=== PATIENT | female | born 1965 | race Caucasian/White ===

== ENCOUNTER 2020-08-04 08:52 | Outpatient (REF) | payer OTHER, SELFPAY ==
--- NOTE | ~2020-08-04 | MM_ITS ---
EXAMINATION: MM SCREENING DIGITAL BREAST TOMOSYNTHESIS, BILATERAL CLINICAL INFORMATION: Screening. Asymptomatic. The lifetime risk of breast cancer based on the Tyrer-Cuzick Model is 7%. COMPARISON: Mammography: 05/07/2019, 05/06/2018, 04/23/2017 TECHNIQUE: Digital breast tomosynthesis is performed in both the craniocaudal and mediolateral oblique views along with computer-aided detection (CAD). Synthesized 2D images are generated from the tomosynthesis. FINDINGS: There are scattered areas of fibroglandular density (ACR BI-RADS breast composition Category b). There are no significant masses, abnormal calcifications, or other abnormalities. Parenchymal pattern is similar to prior exams. The axilla are similar to prior studies. The skin contours are smooth. No significant changes. MM/MM tomosynthesis screening BI IMPRESSION: No mammographic evidence of malignancy. ASSESSMENT: BI-RADS 1: Negative RECOMMENDATION: Routine annual mammography screening. This patient's information was entered into a reminder system with a target due date for their next mammogram.
== END 2020-08-04 08:53 | disposition home or self-care (01) ==
LOC: HO.MAMMO 08:52
PROVIDERS: PCP Family Medicine; Visit Provider Family Medicine
DX: Z12.31 Encounter for screening mammogram for malignant neoplasm of breast (principal)
CPT/HCPCS: 77063; 77067

== ENCOUNTER 2020-12-15 07:20 | Outpatient (REF) | payer OTHER, SELFPAY | END 2020-12-15 07:21 | disposition home or self-care (01) | LOC: HO.LAB 07:20 | PROVIDERS: PCP Family Medicine; Visit Provider Internal Medicine | DX: Z20.822 Contact with and (suspected) exposure to COVID-19 (principal) | CPT/HCPCS: C9803; U0003; U0005 ==

== ENCOUNTER 2021-08-15 10:50 | Outpatient (REF) | payer OTHER, SELFPAY ==
--- NOTE | ~2021-08-15 | XR_ITS ---
EXAMINATION: XR CHEST CLINICAL INFORMATION: Cough. COMPARISON: Chest 11/21/2018 TECHNIQUE: 2 views of the chest were obtained. FINDINGS: The lungs are well-expanded and clear of acute process. The heart size and pulmonary vascularity is normal. There is minimal bilateral apical pleural thickening. There is mild spondylosis ventral dorsal spine. XR/XR chest 2V IMPRESSION: No acute cardiopulmonary pulmonary process seen. No major change from 11/21/2018
[2021-08-15 12:41] LABS: D Dimer High Sensitivity < 150 NG/ML
== END 2021-08-15 10:51 | disposition home or self-care (01) ==
LOC: HO.LAB 10:50
PROVIDERS: Absent Provider Family Medicine; PCP Family Medicine; Visit Provider Emergency Medicine
DX: R05.9 Cough, unspecified (principal)
CPT/HCPCS: 36415; 71046; 85379

== ENCOUNTER 2021-08-17 08:32 | Outpatient (REF) | payer OTHER, SELFPAY ==
--- NOTE | ~2021-08-17 | MM_ITS ---
EXAMINATION: MM SCREENING DIGITAL BREAST TOMOSYNTHESIS, BILATERAL CLINICAL INFORMATION: Screening. Asymptomatic. The lifetime risk of breast cancer based on the Tyrer-Cuzick Model is 7%. COMPARISON: Mammography: 08/04/2020, 05/07/2019, 05/06/2018 TECHNIQUE: Digital breast tomosynthesis is performed in both the craniocaudal and mediolateral oblique views along with computer-aided detection (CAD). Synthesized 2D images are generated from the tomosynthesis. FINDINGS: There are scattered areas of fibroglandular density (ACR BI-RADS breast composition Category b). There are no significant masses, abnormal calcifications, or other abnormalities. Parenchymal pattern is similar to prior studies. The axilla and skin contours are unremarkable. No significant changes. MM/MM tomosynthesis screening BI IMPRESSION: No mammographic evidence of malignancy. ASSESSMENT: BI-RADS 1: Negative RECOMMENDATION: Routine annual mammography screening. This patient's information was entered into a reminder system with a target due date for their next mammogram.
== END 2021-08-17 08:33 | disposition home or self-care (01) ==
LOC: HO.MAMMO 08:32
PROVIDERS: PCP Family Medicine; Visit Provider Family Medicine
DX: Z12.31 Encounter for screening mammogram for malignant neoplasm of breast (principal)
CPT/HCPCS: 77063; 77067

== ENCOUNTER 2021-10-18 08:32 | Outpatient (REF) | payer OTHER, SELFPAY ==
--- NOTE | ~2021-10-18 | XR_ITS ---
EXAMINATION: XR CHEST CLINICAL INFORMATION: Wheezing COMPARISON: August 15, 2021 TECHNIQUE: 2 views of the chest were obtained. FINDINGS: No significant abnormality is noted involving the heart, lungs, mediastinum, bony thorax or soft tissues. Degenerative spurring seen at multiple levels within the thoracic spine. XR/XR chest 2V IMPRESSION: No acute disease.
== END 2021-10-18 08:33 | disposition home or self-care (01) ==
LOC: HO.XRAY 08:32
PROVIDERS: Absent Provider Family Medicine; PCP Family Medicine; Visit Provider Pediatrics
DX: R06.2 Wheezing (principal)
CPT/HCPCS: 71046

== ENCOUNTER → 2021-12-01 08:52 | Outpatient (BNVA) | payer OTHER, SELFPAY | PROVIDERS: PCP Family Medicine; Visit Provider Internal Medicine Pulmonary Disease | DX: R05.8 Other specified cough (principal); J45.909 Unspecified asthma, uncomplicated | CPT/HCPCS: 99202 ==

== ENCOUNTER 2021-12-06 14:41 | Outpatient (REF) | payer OTHER, SELFPAY ==
--- NOTE | 2021-12-06 16:00 | PFT_ITS ---
FLOWS: FEV1 95% predicted at 2.40 L. FVC 91% of predicted at 2.92 L. FEV1 to FVC ratio of 0.82. No bronchodilator response. LUNG VOLUMES: Total lung capacity 105% of predicted at 5.01 L. Residual volume 114% of predicted at 2.03 L. Slow vital capacity 100% of predicted at 2.97 L. Expiratory reserve volume 87% of predicted at 0.77 L. Diffusion capacity is normal. IMPRESSION: No obstructive or restrictive ventilatory defect. No bronchodilator response. Essentially normal pulmonary function test. Christian Causey MD AP/MODL / [id number]
== END 2021-12-06 14:42 | disposition home or self-care (01) ==
LOC: HO.RESP 14:41
PROVIDERS: PCP Family Medicine; Visit Provider Internal Medicine Pulmonary Disease
DX: J45.909 Unspecified asthma, uncomplicated (principal); R05.9 Cough, unspecified
CPT/HCPCS: 94060; 94727; 94729

== ENCOUNTER → 2021-12-13 09:05 | Outpatient (BNVA) | payer OTHER, SELFPAY | PROVIDERS: PCP Family Medicine; Visit Provider Internal Medicine Pulmonary Disease | DX: R05.8 Other specified cough (principal); J45.909 Unspecified asthma, uncomplicated | CPT/HCPCS: 99212 ==

== ENCOUNTER 2022-08-15 10:39 | Outpatient (REF) | payer OTHER, SELFPAY ==
--- NOTE | ~2022-08-15 | US_ITS ---
EXAMINATION: US VENOUS ULTRASOUND WITH DOPPLER LOWER EXTREMITY, BILATERAL CLINICAL INFORMATION: Bilateral leg swelling COMPARISON: None TECHNIQUE: Ultrasound of the deep veins is performed from the hip to the calf with compression sonography and color and pulse Doppler assessment. Spectral analysis with color-flow imaging is performed. FINDINGS: RIGHT: Nonocclusive thrombus is present in the right common femoral vein. The deep venous system on the right is otherwise unremarkable with normal venous compression and respiratory variation and augmented flow in the superficial femoral vein, profunda femoral vein, popliteal vein, and the trifurcation region shows no evidence of deep venous thrombosis. There is no significant popliteal fossa cyst. LEFT: There is normal venous compression and respiratory variation and augmented flow. The visualized common femoral vein, superficial femoral vein, profunda femoral vein, popliteal vein, and the trifurcation region shows no evidence of deep venous thrombosis. There is no significant popliteal fossa cyst. If the patient's symptoms persist, followup ultrasound in 5 days 7 days might be of value to exclude proximal propagation from a non-visualized calf vein. US/US venous duplex LE BI IMPRESSION: Right lower extremity DVT with thrombus in the common femoral vein. No DVT noted on the left.
== END 2022-08-15 10:40 | disposition home or self-care (01) ==
LOC: HO.HMGCX 10:39
PROVIDERS: PCP Family Medicine; Visit Provider Family Medicine
DX: M79.89 Other specified soft tissue disorders (principal)
CPT/HCPCS: 93970

== ENCOUNTER → 2022-08-30 09:30 | Outpatient (BNVA) | payer OTHER, SELFPAY | PROVIDERS: PCP Family Medicine; Visit Provider Internal Medicine Pulmonary Disease | DX: J45.909 Unspecified asthma, uncomplicated (principal) | CPT/HCPCS: 99212 ==

== ENCOUNTER → 2022-09-04 08:59 | Outpatient (BNV) | payer OTHER, SELFPAY | PROVIDERS: PCP Family Medicine; Visit Provider Internal Medicine Medical Oncology | DX: I82.401 Acute embolism and thrombosis of unspecified deep veins of right lower extremity (principal) | CPT/HCPCS: 99204; 99213 ==

== ENCOUNTER 2022-09-26 08:28 | Outpatient (REF) | payer OTHER, SELFPAY ==
--- NOTE | ~2022-09-26 | MM_ITS ---
EXAMINATION: MM SCREENING DIGITAL BREAST TOMOSYNTHESIS, BILATERAL CLINICAL INFORMATION: Screening. Asymptomatic. The lifetime risk of breast cancer based on the Tyrer-Cuzick Model is 7%. COMPARISON: Mammography: 08/17/2021, 08/04/2020, 05/07/2019, 05/06/2018 TECHNIQUE: Digital breast tomosynthesis is performed in both the craniocaudal and mediolateral oblique views along with computer-aided detection (CAD). Synthesized 2D images are generated from the tomosynthesis. FINDINGS: There are scattered areas of fibroglandular density (ACR BI-RADS breast composition Category b). There are no significant masses, abnormal calcifications, or other abnormalities. No architectural abnormality or developing density or significant change from prior studies. Axillary nodes are similar to prior studies. The skin contours are smooth. MM/MM tomosynthesis screening BI IMPRESSION: No mammographic evidence of malignancy. ASSESSMENT: BI-RADS 2: Benign RECOMMENDATION: Routine annual mammography screening. This patient's information was entered into a reminder system with a target due date for their next mammogram.
== END 2022-09-26 08:29 | disposition home or self-care (01) ==
LOC: HO.MAMMO 08:28
PROVIDERS: PCP Family Medicine; Visit Provider Family Medicine
DX: Z12.31 Encounter for screening mammogram for malignant neoplasm of breast (principal)
CPT/HCPCS: 77063; 77067

== ENCOUNTER 2022-11-12 13:48 | Outpatient (REF) | payer OTHER, SELFPAY ==
--- NOTE | ~2022-11-12 | US_ITS ---
EXAMINATION: US VENOUS ULTRASOUND WITH DOPPLER LOWER EXTREMITY, RIGHT CLINICAL INFORMATION: Follow-up DVT COMPARISON: Previous exam August 2022 TECHNIQUE: Ultrasound of the deep veins is performed from the hip to the calf with compression sonography and color and pulse Doppler assessment. Spectral analysis with color-flow imaging is performed. FINDINGS: There is nonocclusive thrombus seen in the right common femoral vein. This is similar to previous exam August 2022. This may represent chronic changes from DVT. The remainder of the deep veins in the right leg are patent. The right superficial femoral, profunda, popliteal and visualized posterior tibial and peroneal veins in the calf are patent. The right greater saphenous vein is not seen. Question of previous ablation. No Palacio's cyst. The contralateral left common femoral vein is patent. US/US venous duplex LE RT IMPRESSION: Nonocclusive thrombus seen in the right common femoral vein similar to August 2022 exam. This may be chronic. No other evidence of DVT. Right greater saphenous vein not seen/question history of previous ablation.
== END 2022-11-12 13:49 | disposition home or self-care (01) ==
LOC: HO.HMGCX 13:48
PROVIDERS: PCP Family Medicine; Visit Provider Internal Medicine Medical Oncology
DX: I82.401 Acute embolism and thrombosis of unspecified deep veins of right lower extremity (principal)
CPT/HCPCS: 93971

== ENCOUNTER 2023-03-25 08:36 | Outpatient (REF) | payer OTHER, SELFPAY ==
[2023-03-25 12:16] LABS: HIV AB/AG Nonreactive (Nonreactive); HIV Num 1 0.05 S/CO (0.00-0.99)
[2023-03-25 12:19] LABS: Creatinine Urine 44.54 mg/dL; Microalbumin Urine < 5.0 mg/L
== END 2023-03-25 08:37 | disposition home or self-care (01) ==
LOC: HO.HHCL 08:36
PROVIDERS: Visit Provider Family Medicine
DX: Z11.4 Encounter for screening for human immunodeficiency virus [HIV] (principal); E11.9 Type 2 diabetes mellitus without complications
CPT/HCPCS: 36415; 82043; 82570; 87389

== ENCOUNTER 2023-08-02 08:30 | Outpatient (REF) | payer OTHER, SELFPAY ==
[2023-08-02 12:10] LABS: Alanine Aminotransferase 32 U/L (0-31); Albumin Level 4.4 g/dL (3.5-5.0); Alkaline Phosphatase 36 U/L (39-117); Anion Gap 14 (12-20); Aspartate Amino Transferase 41 U/L (5-31); Bilirubin Direct 0.2 mg/dL (0.0-0.5); Bilirubin Total 0.5 mg/dL (0.0-1.0); Blood Urea Nitrogen 19 mg/dL (9-16); Calcium 9.8 mg/dL (8.4-10.2); Carbon Dioxide 24 mmol/L (22-29); Chloride 103 mmol/L (96-108); Cholesterol 163 mg/dL (<200); Estimated Glomerular Filt Rate > 60; Glucose Random 217 mg/dL (60-115); HDL Cholesterol 42 mg/dL (>40); LDL Cholesterol Calculated 92 mg/dL (<100); Potassium 4.2 mmol/L (3.3-5.1); Sodium 137 mmol/L (135-145); Total Protein 8.2 g/dL (6.5-8.0); Triglycerides 149 mg/dL (<150)
[2023-08-02 12:13] LABS: TSH reflex Free T4 0.55 uIU/mL (0.32-4.0)
[2023-08-02 12:40] LABS: Creatinine Urine 53.74 mg/dL; Microalbumin Urine < 5.0 mg/L
== END 2023-08-02 08:31 | disposition home or self-care (01) ==
LOC: HO.HHCL 08:30
PROVIDERS: Visit Provider Family Medicine
DX: E03.9 Hypothyroidism, unspecified (principal); E11.9 Type 2 diabetes mellitus without complications; E78.5 Hyperlipidemia, unspecified; I10 Essential (primary) hypertension
CPT/HCPCS: 36415; 80048; 80061; 80076; 82043; 82570; 84443

== ENCOUNTER 2023-11-05 08:56 | Outpatient (REF) | payer OTHER, SELFPAY | END 2023-11-05 08:57 | disposition home or self-care (01) | LOC: HO.MAMMO 08:56 | PROVIDERS: PCP Family Medicine; Visit Provider Family Medicine | DX: Z12.31 Encounter for screening mammogram for malignant neoplasm of breast (principal) | CPT/HCPCS: 77063; 77067 ==

== ENCOUNTER → 2023-11-05 09:00 | Outpatient (BNV) | payer OTHER, SELFPAY | PROVIDERS: PCP Family Medicine; Visit Provider Radiology Diagnostic Radiology | DX: Z12.31 Encounter for screening mammogram for malignant neoplasm of breast (principal) | CPT/HCPCS: 77063; 77067 ==

== ENCOUNTER 2023-12-09 08:43 | Outpatient (REF) | payer OTHER, SELFPAY ==
[2023-12-09 12:18] LABS: Alanine Aminotransferase 22 U/L (0-31); Albumin Level 4.6 g/dL (3.5-5.0); Alkaline Phosphatase 29 U/L (39-117); Aspartate Amino Transferase 17 U/L (5-31); Bilirubin Direct 0.2 mg/dL (0.0-0.5); Bilirubin Total 0.4 mg/dL (0.0-1.0); Cholesterol 118 mg/dL (<200); HDL Cholesterol 37 mg/dL (>40); LDL Cholesterol Calculated 62 mg/dL (<100); Triglycerides 96 mg/dL (<150)
== END 2023-12-09 08:44 | disposition home or self-care (01) ==
LOC: HO.HHCL 08:43
PROVIDERS: Visit Provider Family Medicine
DX: E78.5 Hyperlipidemia, unspecified (principal)
CPT/HCPCS: 36415; 80061; 80076

== ENCOUNTER 2024-08-28 08:53 | Outpatient (REF) | payer SELFPAY ==
[2024-08-28 12:09] LABS: Anion Gap 12 (12-20); Blood Urea Nitrogen 15 mg/dL (9-16); Calcium 9.6 mg/dL (8.4-10.2); Carbon Dioxide 22 mmol/L (22-29); Chloride 109 mmol/L (96-108); Estimated Glomerular Filt Rate > 60; Glucose Random 121 mg/dL (60-115); Potassium 4.3 mmol/L (3.3-5.1); Sodium 139 mmol/L (135-145)
[2024-08-28 12:35] LABS: Vitamin B12 208 pg/mL (200-900)
== END 2024-08-28 08:54 | disposition home or self-care (01) ==
LOC: HO.HHCL 08:53
PROVIDERS: Visit Provider Family Medicine
DX: I10 Essential (primary) hypertension (principal); E11.9 Type 2 diabetes mellitus without complications
CPT/HCPCS: 36415; 80048; 82607

== ENCOUNTER → 2024-11-10 09:00 | Outpatient (BNV) | payer OTHER, SELFPAY | PROVIDERS: PCP Family Medicine; Visit Provider Internal Medicine | DX: Z12.31 Encounter for screening mammogram for malignant neoplasm of breast (principal) | CPT/HCPCS: 77063; 77067 ==

== ENCOUNTER 2024-11-10 09:06 | Outpatient (REF) | payer OTHER, SELFPAY ==
--- OUTSIDE RECORDS SUMMARY | 2024-11-10 09:48 | XMS_ITS | Encounter Summary ---
Author Organization [employer] Address [address] [place] [address] 7 [place] [address] Care Team Providers Care Water Quality Assistant Name Role Phone Holly Holt MD Primary Care Provider [phone]- [phone] Amelia Majano PharmD Unavailable Shelby Abad MD Unavailable [phone] Encounter Details Date Type Department Care Team (Late st Contact Info) Description 08/23/2022 Orders Only [facility] MEDICINE [address] [place], [place] [phone] Holly Holt MD [address] [place], [place] [phone] Acute deep vein thrombosis (DVT) of right lower extremity, unspecified vein (CMS/HCC) Social History Tobacco Use Types Packs/Day Years Used Date Smoking Tobacco: Never Smokeless Tobacco: Never Depression Answer Date Recorded Patient Health Questionnaire-9 Score 0 08/06/2022 Depression Answer Date Recorded Patient Health Questionnaire-2 Score 0 08/06/2022 Comments Unknown Sex and Gender Information Value Date Recorded Sex Assigned at Female 04/02/2022 10:19 AM EDT Legal Sex Female 10:19 AM EDT Gender Identity Female 04/02/2022 10:19 AM EDT Sexual Orientation Straight 04/02/2022 10 :19 AM EDT COVID-19 Exposure Response Date Recorded In the last 10 days, have yo u been in contact with someone who was confirmed or suspected to have Coronavirus/COVID-19? No / Unsure 08/23/2022 9:25 AM EDT documented as of this encounter Plan of Treatment Upcoming Encounters Date Type Department Care Team (Late st Contact Info) Description 11/13/2024 9:00 AM EDT Office Visit [facility] MEDICINE [address] [place] [phone] Holly Holt MD [address] [place] [address] 11/23/2024 9:00 AM EDT Medication Management [facility] MEDICINE [address] [place] [address] GuysAmelia Link, PharmD [address] [place] [address] documented as of this encounter Goals Goal Patient Goal Type Associated Problems Recent Progress Patient-Stated? Author Blood Pressure < 140/90 Blood Pressure 130/80(2024 9:18 AM EDT) No Guys-Silvia Wattssa, PharmD Hemoglobin A1c < 7 Result Component 7(08/25/2024 9:55 AM EDT) No GuysAmelia Valle, PharmD documented as of this encounter Visit Diagnoses Diagnosis Acute deep vein thrombosis (DVT) of right lower extremity, unspecified vein (CMS/HCC) documented in this encounter Additional Health Concerns Assessment Noted Time PHQ-9 Depression Total Score: 0 08/07/19 23 10:45 AM EST documented as of this encounter Care Teams Water Quality Assistant Relationship Specialty Start Date End Date Holly Holt MD [address] [place] [address] PCP - General Family Medicine 06/03/18 Amelia Majano, PharmD [address] [place] [phone] Pharmacist Internal Medicine 05/21/22 Shelby Abad MD [address] [place] [phone] Hematology and Oncology 07/07/24 documented as of this encounter
== END 2024-11-10 09:07 | disposition home or self-care (01) ==
LOC: HO.MAMMO 09:06
PROVIDERS: PCP Family Medicine; Visit Provider Family Medicine
DX: Z12.31 Encounter for screening mammogram for malignant neoplasm of breast (principal)
CPT/HCPCS: 77063; 77067

== ENCOUNTER 2024-11-17 08:44 | Outpatient (REF) | payer OTHER, SELFPAY ==
--- OUTSIDE RECORDS SUMMARY | 2024-11-17 09:09 | XMS_ITS | Encounter Summary ---
Author Organization [employer] Address [address] [place] [address] [address] [place] [address] Care Team Providers Care Marketing Operations Analyst Name Role Phone Holly Holt MD Primary Care Provider [phone] Amelia Majano PharmD Unavailable [phone] Shelby Abad MD Unavailable [phone] Encounter Details Date Type Department Care Team (Latest Contact Info) Description 11/13/2024 Travel Social History Tobacco Use Types Packs/Day Years Used Date Smoking Tobacco: Former Cigarettes Q uit: 08/01/1993 Passive Smoke Exposure: Never Smokeless Tobacco: Never Alcohol Use Standard Drinks/Week Comments Defer 0 (1 standard drink = 0.6 oz pur e alcohol) Socially Depression Answer Date Recorded Patient Health Questionnaire-9 Score 0 11/13/2024 Patient Health Questionnaire-9 Score 0 11/13/2024 Last PHQ-9: Questionnaire Data Not on file 0 11/13/2024 Housing Stability Answer Date Recorded What is your housing situation today? I have ronaldo samuel 11/13/[address] you li ve. Do you have problems with any of the following? None of the above 11/13/2024 Food Insecurity Answer Date Recorded Within the past 12 months, y ou worried that your food would run out before you got money to buy more: Never True 11/13/2024 Within the past 12 months,th e food you bought just didn't last and you didn't have enough money to get more: Never True Transportation Answer Date Recorded In the past 12 months, has l ack of transportation kept you from medical appts, meetings, work or from getting things needed for daily living? No 11/13/2024 Utilities Answer Date Recorded In the past 12 months, has t he electric, gas, oil or water company threatened to shut off services in your home? No 11/13/2024 Depression Answer Date Recorded Patient Health Questionnaire-2 Score 0 11/13/2024 Internet Access Answer Date Recorded Internet Access Q1 Yes 11/13/2024 Internet Access Q2 Not on file 11/13/2024 Comments Unknown Sex and Gender Information Value Date Recorded Sex Assigned at Female 04/02/2022 10:19 AM EDT Legal Sex Female 10:19 AM EDT Gender Identity Female 04/02/2022 10:19 AM EDT Sexual Orientation Straight 04/02/2022 10 :19 AM EDT documented as of this encounter Functional Status * Over the past 2 weeks, how often have you been bothered by any of the following problems? Question Answer Date of Assessment Author Patient Health Questionnaire-2 Score 0 11/01 9:14 AM EDT Kecia Campuzano MA * Little interest or pleasure in doing things Answer Date of Assessment Author Not at all 11/13/2024 9:14 AM EDT Anna Campuzano MA * Feeling down, depressed, or hopeless Answer Date of Assessment Author Not at all 11/13/2024 9:14 AM EDT Anna Campuzano MA * Trouble falling or staying asleep, or sleeping too much Answer Date of Assessment Author Not at all 11/13/2024 9:14 AM EDT Anna Campuzano MA * Feeling tired or having little energy Answer Date of Assessment Author Not at all 11/13/2024 9:14 AM EDT Anna Campuzano MA * Poor appetite or overeating Answer Date of Assessment Author Not at all 11/13/2024 9:14 AM EDT Anna Campuzano MA * Feeling bad about yourself - or that you are a failure or have let yourself or your family down Answer Date of Assessment Author Not at all 11/13/2024 9:14 AM EDT Anna Campuzano MA * Trouble concentrating on things, such as reading the newspaper or watching television Answer Date of Assessment Author Not at all 11/13/2024 9:14 AM EDT Anna Campuzano MA * Moving or speaking so slowly that other people could have noticed? Or the opposite - being so fidgety or restless that you have been moving around a lot more than usual. Answer Date of Assessment Author Not at all 11/13/2024 9:14 AM EDT Anna Campuzano MA * Thoughts that you would be better off or hurting yourself in some way Answer Date of Assessment Author Not at all 11/13/2024 9:14 AM EDT Anna Campuzano MA * Patient Health Questionnaire-9 Score Answer Date of Assessment Author 0 11/13/2024 9:14 AM EDT Anna Campuzano MA * Over the last 2 weeks, how often have you been bothered by any of the following problems? Question Answer Date of Assessment Author Feeling nervous, anxious, or on edge 0 11/01 9:14 AM EDT Kecia Campuzano MA Not being able to stop or co ntrol worrying 0 11/13/2024 9:14 AM EDT Kecia Campuzano MA Worrying too much about diff erent things 0 11/13/2024 9:14 AM EDT Kecia Campuzano MA Trouble relaxing 0 11/13/2024 9:14 AM EDT Kecia Newman MA Being so restless that it is hard to sit still 0 11/13/2024 9:14 AM EDT Kecia Campuzano MA Becoming easily annoyed or irritable 0 11/01 9:14 AM EDT Kecia Campuzano MA Feeling afraid as if somethi ng awful might happen 0 11/13/2024 9:14 AM EDT Kecia Campuzano MA JANI-7 Total Score 0 11/13/2024 9:14 AM EDT Kecia Campuzano MA documented as of this encounter Plan of Treatment Upcoming Encounters Date Type Department Care Team (Late st Contact Info) Description 11/23/2024 9:00 AM EDT Medication Management [facility] MEDICINE [address] [place] [address] Amelia Majano, PharmD [address] [place] [address] documented as of this encounter Goals Goal Patient Goal Type Associated Problems Recent Progress Patient-Stated? Author Blood Pressure < 140/90 Blood Pressure 130/88(2024 9:14 AM EDT) No Piers-Gambl e, Amelia, PharmD Record your blood pressure once per day Blood Pressure No Piers-Gambl e, Amelia, PharmD Hemoglobin A1c < 7 Result Component 7.7( 9:26 AM EDT) No Piers-Gambl e, Amelia, PharmD Record your blood sugar as directed Result Component No Piers-Gambl e, Amelia, PharmD documented as of this encounter Visit Diagnoses Not on filedocumented in this encounter Additional Health Concerns Assessment Noted Time PHQ-9 Depression Total Score: 0 11/14/19 9:14 AM EDT documented as of this encounter Care Teams Marketing Operations Analyst Relationship Specialty Start Date End Date Holly Holt MD [address] [place] [address] PCP - General Family Medicine 06/03/18 Amelia Majano, PharmD [address] [place] [address] Pharmacist Internal Medicine 05/21/22 Shelby Abad MD [address] [place] [id number] Hematology and Oncology 07/07/24 documented as of this encounter
[2024-11-17 11:47] LABS: MANUAL DIFF FLAG NO
[2024-11-17 11:57] LABS: Basophils Absolute Auto 0.1 X10*3/uL (0.0-0.2); Basophils Percent Auto 0.6 % (0-2); Eosinophils Absolute Auto 0.5 X10*3/uL (0.0-0.4); Eosinophils Percent Auto 5.9 % (0-4); Hematocrit 41.7 % (37.0-47.0); Hemoglobin 14.2 g/dl (12.0-16.0); Imm Gran Abs Auto 0.02 X10*3/uL (0.00-0.03); Imm Gran Pct Auto 0.3 % (0.0-0.4); Lymphocytes Absolute Auto 2.9 X10*3/uL (1.2-4.9); Lymphocytes Percent Auto 36.8 % (20-40); Mean Corpuscular HGB Conc 34.1 g/dl (31.0-35.0); Mean Corpuscular Hemoglobin 31.2 pg (27.0-33.0); Mean Corpuscular Volume 91.6 fL (80.0-98.0); Mean Platelet Volume 10.5 fL (9.4-12.3); Monocytes Absolute Auto 0.6 X10*3/uL (0.1-1.2); Monocytes Percent Auto 7.6 % (2-11); Neutrophils Absolute Auto 3.8 x10*3/uL (2.0-8.3); Neutrophils Percent Auto 48.8 % (45-73); Platelet Count 229 X10*3/uL (160-400); Red Blood Count 4.55 X10*6/uL (4.20-5.50); Red Cell Distribution Width 12.9 % (11.0-16.0); White Blood Count 7.8 X10*3/uL (4.8-10.8)
[2024-11-17 12:22] LABS: Alanine Aminotransferase 21 U/L (0-31); Albumin Level 4.5 g/dL (3.5-5.0); Alkaline Phosphatase 34 U/L (39-117); Anion Gap 11 (12-20); Aspartate Amino Transferase 28 U/L (5-31); Bilirubin Direct 0.1 mg/dL (0.0-0.5); Bilirubin Total 0.3 mg/dL (0.0-1.0); Blood Urea Nitrogen 24 mg/dL (9-16); Calcium 9.5 mg/dL (8.4-10.2); Carbon Dioxide 27 mmol/L (22-29); Chloride 108 mmol/L (96-108); Cholesterol 143 mg/dL (<200); Estimated Glomerular Filt Rate > 60; Glucose Random 174 mg/dL (60-115); HDL Cholesterol 50 mg/dL (>40); LDL Cholesterol Calculated 76 mg/dL (<100); Potassium 4.8 mmol/L (3.3-5.1); Sodium 141 mmol/L (135-145); Total Protein 7.9 g/dL (6.5-8.0); Triglycerides 88 mg/dL (<150)
[2024-11-17 12:34] LABS: D Dimer High Sensitivity < 150 NG/ML
[2024-11-17 12:38] LABS: Creatinine Urine 39.66 mg/dL; Microalbumin Urine < 5.0 mg/L
[2024-11-17 12:39] LABS: TSH reflex Free T4 0.03 uIU/mL (0.32-4.0); Vitamin D 25-OH Total 18.9 ng/mL (>30)
[2024-11-17 13:10] LABS: Free T4 (Free Thyroxine) 1.25 ng/dL (0.71-1.85)
== END 2024-11-17 08:45 | disposition home or self-care (01) ==
LOC: HO.HHCL 08:44
PROVIDERS: Internal Medicine Medical Oncology; PCP Family Medicine; Visit Provider Family Medicine
DX: I82.401 Acute embolism and thrombosis of unspecified deep veins of right lower extremity (principal); E03.9 Hypothyroidism, unspecified; E55.9 Vitamin D deficiency, unspecified; E11.9 Type 2 diabetes mellitus without complications
CPT/HCPCS: 36415; 80053; 80061; 80076; 82043; 82248; 82306; 82570; 84439; 84443; 85025; 85379

== ENCOUNTER 2024-11-23 08:44 | Outpatient (REF) | payer OTHER, SELFPAY ==
--- OUTSIDE RECORDS SUMMARY | 2024-11-23 09:06 | XMS_ITS | Encounter Summary ---
Author Organization [employer] Address [address] [place] [address] [address] [place] [address] Care Team Providers Care Machine Biller Name Role Phone Holly Holt MD Primary Care Provider [phone]- [phone] Amelia Majano PharmD Unavailable [phone] Shelby Abad MD Unavailable [phone] Encounter Details Date Type Department Care Team (Late st Contact Info) Description 08/23/2022 Orders Only [facility] MEDICINE [address] [place], [place] [phone] Holly Holt MD [address] [place], [place] [phone] Acute deep vein thrombosis (DVT) of right [...] as of this encounter Plan of Treatment Not on file documented as of this encounter Goals Goal Patient Goal Type Associated Problems Recent Progress Patient-Stated? Author Blood Pressure < 140/90 Blood Pressure 130/88(2024 9:14 AM EDT) No Amelia Islas PharmD Hemoglobin A1c < 7 Result Component 7.7( 9:26 AM EDT) No Amelia Islas PharmD documented as of this encounter Visit Diagnoses Diagnosis Acute deep vein thrombosis (DVT) of right lower extremity, unspecified vein (CMS/HCC) documented in this encounter Additional Health Concerns Assessment Noted Time PHQ-9 Depression Total Score: 0 08/07/19 23 10:45 AM EST documented as of this encounter Care Teams Machine Biller Relationship Specialty Start Date End Date Holly Holt MD [address] [place] [address] PCP - General Family Medicine 06/03/18 Amelia Majano PharmD [address] [place] [address] Pharmacist Internal Medicine 05/21/22 Shelby Abad MD [address] [place] [id number] Hematology and Oncology 07/07/24 documented as of this encounter
[2024-11-23 12:04] LABS: TSH reflex Free T4 0.02 uIU/mL (0.32-4.0)
[2024-11-23 13:20] LABS: Free T4 (Free Thyroxine) 1.26 ng/dL (0.71-1.85)
== END 2024-11-23 08:45 | disposition home or self-care (01) ==
LOC: HO.HHCL 08:44
PROVIDERS: PCP Family Medicine; Visit Provider Family Medicine
DX: E03.9 Hypothyroidism, unspecified (principal)
CPT/HCPCS: 36415; 84439; 84443